=== PATIENT | female | born 1965 | race Hispanic/Latino ===

== ENCOUNTER 2022-04-23 18:45 | Emergency (ER) | payer OTHER ==
[2022-04-23 19:21] LABS: #Lymphocytes 1.7 thou/uL (1.20-3.40); #Monocytes 0.3 thou/uL (0.11-0.59); #Neutrophils 3.5 thou/uL (1.40-6.50); %Basophils 0.1 % (0.0-1.0); %Eosinophils 0.6 % (0.0-10.0); %Lymphocytes 30.9 % (21.0-51.0); %Monocytes 5.8 % (0.0-10.0); %Neutrophils 62.6 % (42.0-75.0); Hemoglobin 15.6 g/dL (12.0-16.0); Mean Corpuscular HGB CONC 34.5 g/dL (32.0-36.0); Mean Corpuscular Hemoglobin 32.9 pg (27.0-31.0); Mean Corpuscular Volume 95.4 fl (78.0-98.0); Mean Platelet Volume 8.7 fL (7.4-10.4); Platelet Count 91 10x3/uL (130-400); Red Blood Cell (RBC) Count 4.74 mill/uL (4.20-5.40); White Blood Cell (WBC) Count 5.6 10x3/uL (4.8-10.8)
[2022-04-23 19:29] LABS: Actual Bicarbonate (HCO3v) 25 mEq/L (22-28); Analyzer IN Cardio ER; Base Excess 0.7 mEq/L (-2.0 to +3.0); Calcium, Ionized (venous) 1.08 mmol/L (1.16-1.32); Chloride (VBG) 99 mmol/L (98-106); Hemoglobin (Hb) 16.1 g/dL (11.7-16.0); Potassium (VBG) 3.72 mmol/L (3.70-5.30); Sodium 135.5 mmol/L (133-146); pH (venous) 7.43 (7.32-7.43)
[2022-04-23 19:44] LABS: ALT (SGPT) 58 U/L (8-55); AST (SGOT) 55 U/L (5-34); Albumin 3.6 g/dL (3.5-5.0); Alkaline Phosphatase 178 U/L (40-110); Anion Gap 15 mmol/L (10-20); BUN (Urea Nitrogen) 12 mg/dL (9.8-20.1); Bilirubin, Total 0.5 mg/dL (0.2-1.2); Calc. Creatinine Clearance 0 mL/min (70-130); Calcium 8.8 mg/dL (7.8-10.44); Carbon Dioxide 23 mmol/L (22-29); Chloride 100 mmol/L (98-107); Estimated GFR 76; Globulin 4.2 g/dL (2.4-3.5); Lipase 108 U/L (8-78); Potassium 4.1 mmol/L (3.5-5.1); Protein, Total 7.8 g/dL (6.0-8.3); Sodium 134 mmol/L (136-145)
[2022-04-23 19:47] LABS: Platelet Morphology Comment Appears Decreased; RBC Morphology Normal
[2022-04-23 19:49] LABS: Glucose 414 mg/dL (70-105)
[2022-04-23] MEDS ORDERED: Insulin Regular 300 UNITS/3 ML VIAL ONE (20:31)
[2022-04-23 21:06] LABS: Bacteria/HPF 4+ HPF (None Seen); Bilirubin Negative (Negative); Blood, Urine Negative (Negative); Clarity Clear (Clear); Glucose, Urine (Dipstick) Greater than 1000 mg/dL (Negative); Ketone, Urine Negative (Negative); Leukocyte 25 Leu/uL (Negative); Nitrite 2+ (Negative); Protein, Urine (Dipstick) Negative (Neg-Trace); RBC/HPF 0-3 HPF (0-3); Specific Gravity, Urine 1.036 (1.002-1.036); Urobilinogen Normal mg/dL (Less than 2)
== END 2022-04-23 22:00 | disposition home or self-care (01) ==
LOC: ERS 18:45
DX: E11.65 Type 2 diabetes mellitus with hyperglycemia (principal); N39.0 Urinary tract infection, site not specified; Z79.4 Long term (current) use of insulin; Z79.84 Long term (current) use of oral hypoglycemic drugs
CPT/HCPCS: 36415; 36416; 80053; 81003; 81015; 82010; 82805; 83690; 85025; 96361; 96374; J1815

== ENCOUNTER 2022-09-12 17:41 | Emergency (ER) | payer OTHER | END 2022-09-12 20:29 | disposition home or self-care (01) | LOC: ERS 17:41 | DX: M25.561 Pain in right knee (principal); E11.9 Type 2 diabetes mellitus without complications; Z79.84 Long term (current) use of oral hypoglycemic drugs; Z79.4 Long term (current) use of insulin ==